=== PATIENT | female | born 1935 | race Hispanic/Latino ===

== ENCOUNTER 2017-03-20 18:52 | Inpatient (IN) | payer MEDICARE ==
[2017-03-20] MEDS ORDERED: Lidocaine 5% Patch TD STA (19:21)
--- NOTE | 2017-03-20 19:33 | ED PDOC ---
HPI: Back Chief Complaint (Provider): lower back pain History Per: Patient History/Exam Limitations: no limitations Onset/Duration Of Symptoms: Hrs (3) Current Symptoms Are (Timing): Other (worse) Quality Of Discomfort: "Pain" Description Of Injury (Context): Fell forward after she tripped and hit ground with her arms Severity: Severe Previous Symptoms: None Associated Symptoms: None Exacerbating Factor(s): Turning, Movement Additional History Per: Patient Additional Complaint(s): 81 y/o F with Hx of HTN, Hyperchol presents c/o lower back pain after a fall around 4 pm while she was walking near [place]. Patient states she tripped and fell forward hitting the ground with her UE. No loss of consciousness, dizziness , urinary symptoms, feces incontinence, CP, SOB, LE paresthesias or weakness reported. Patient didnt feel the pain at the beginning and she was able to walk home. Since then pain has increased in intensity. She took 1 pain med that she had at home for "chronic pain" but didnt help. Upon further questioning patient she mentions having "Leukemia" diagnosed this year. Evaluated by Hem-onc once. <Macario Kan - Last Filed: 03/20/17 23:39> <Lore Salazar - Last Filed: 03/24/17 11:42> Time Seen by Provider: 03/20/17 18:55 Chief Complaint (Nursing): Back Pain Past Medical History Vital Signs: Last Vital Signs Temp 97.8 F 03/20/17 18:54 Pulse 85 03/20/17 18:54 Resp 18 03/20/17 18:54 BP 167/93 H 03/20/17 18:54 Pulse Ox 99 03/20/17 18:54 - Medical History PMH: HTN, Hypercholesterolemia - Surgical History Surgical History: Back Surgery (Lumbar spine 20 y/a) - Family History Family History: States: No Known Family Hx - Living Arrangements Living Arrangements: Alone <Macario Kan - Last Filed: 03/20/17 23:39> Vital Signs: Last Vital Signs Temp 97.8 F 03/24/17 08:14 Pulse 77 03/24/17 08:14 Resp 20 03/24/17 08:14 BP 111/74 03/24/17 08:14 Pulse Ox 93 L 03/24/17 08:14 <Lore Salazar - Last Filed: 03/24/17 11:42> - Home Medications Home Medications: Ambulatory Orders Medication Instructions Recorded Alendronate Sodium [Binosto] 70 mg PO QWK 03/21/17 Amitriptyline HCl [Amitriptyline 10 mg PO HS 03/21/17 HCl] Amlodipine Besylate [Amlodipine 5 mg PO DAILY 03/21/17 Besilate] Atorvastatin Calcium [Atorvastatin 10 mg PO DAILY 03/21/17 Calcium] Ezetimibe [Zetia] 10 mg PO DAILY 03/21/17 Losartan Potassium [Cozaar] 100 mg PO DAILY 03/21/17 Oxybutynin Chloride [Oxybutynin 10 mg PO DAILY 03/21/17 Chloride ER] Trazodone HCl [Trazodone HCl] 50 mg PO HS 03/21/17 - Allergies Allergies/Adverse Reactions: Allergies Allergy/AdvReac Type Severity Reaction Status Date / Time codeine Allergy REDNESS Verified 03/20/17 18:54 Sulfa (Sulfonamide Allergy RASH Verified 03/20/17 18:54 Antibiotics) Supervising Attending Note - Supervising Attending Note The Documented history was done by the: Physician Street Cleaner, Attending Physician The documented physical exam was done by the: Physician Street Cleaner, Attending Physician - Attestation: I have personally seen and examined this patient.: Yes I have fully participated in the care of the patient.: Yes I have reviewed all pertinent clinical information: Yes <Lore Salazar - Last Filed: 03/24/17 11:42> Review of Systems ROS Statement: Except As Marked, All Systems Reviewed And Found Negative Musculoskeletal: Positive for: Back Pain (lower back) <Macario Kan - Last Filed: 03/20/17 23:39> Physical Exam - Reviewed Nursing Documentation Reviewed: Yes Vital Signs Reviewed: Yes - Physical Exam Appears: Positive for: Non-toxic, Uncomfortable Skin: Positive for: Normal Color, Warm Eye Exam: Positive for: Normal appearance, EOMI Neck: Positive for: Supple Cardiovascular/Chest: Positive for: Regular Rate, Rhythm. Negative for: Gallop Respiratory: Positive for: Normal Breath Sounds. Negative for: Wheezing, Respiratory Distress Gastrointestinal/Abdominal: Positive for: Soft. Negative for: Tenderness Back: Positive for: Vertebral Tenderness (Coccyx area), Decreased ROM (Painfull ROM of lower back). Negative for: Normal Inspection (Sx scar lumbar spine) Extremity: Positive for: Pedal Edema (trace), Capillary Refill. Negative for: Tenderness, Calf Tenderness Neurologic/Psych: Positive for: Alert, Oriented <Macario Kan - Last Filed: 03/20/17 23:39> - Laboratory Results Result Diagrams: 03/20/17 21:46 03/20/17 21:46 - ECG O2 Sat by Pulse Oximetry: 99 - Progress ED Course And Treament: Xray inconclusive CT of the lumbar spine positive for acute L1 Fx. WBC>40 Pain improved but persistent Admit to hospital <Macario Kan - Last Filed: 03/20/17 23:39> - Laboratory Results Result Diagrams: 03/23/17 05:40 03/23/17 05:40 <Lore Salazar - Last Filed: 03/24/17 11:42> Medical Decision Making Medical Decision Making: L1 acute Fx CT shows acute Fx Toradol 15 mg IM once Tylenol 975 mg once To be admitted to hosp Leukemia?? WBC 40s(lymphs) <Macario Kan - Last Filed: 03/20/17 23:39> Disposition - Disposition Disposition Time: 23:30 <Macario Kan - Last Filed: 03/20/17 23:39> <Lore Salazar - Last Filed: 03/24/17 11:42> - Clinical Impression Clinical Impression: Vertebral fracture - Disposition Condition: STABLE
--- NOTE | 2017-03-20 21:20 | CT ---
EXAM: CT Lumbar Spine Without Intravenous Contrast CLINICAL HISTORY: 81 years old, female; Injury or trauma; Fall; Initial encounter; Blunt trauma (contusions or hematomas); Additional info: Post fall back pain R/O fracture TECHNIQUE: Axial computed tomography images of the lumbar spine without intravenous contrast. All CT scans at this facility use one or more dose reduction techniques, viz.: automated exposure control; ma/kV adjustment per patient size (including targeted exams where dose is matched to indication; i.e. head); or iterative reconstruction technique. COMPARISON: None FINDINGS: Vertebrae: Cortical disruption is detected anteriorly within the vertebral body of L1, suggesting a burst fracture of the anterior column. This is best detected on series 601, image 68; series 6, image 35. No retropulsed fragments are detected. Discs/spinal canal/neural foramina: Moderate degenerative disease, with osteophyte formation, disc space narrowing, endplate changes and vacuum phenomenon. Significant facet arthropathy is also noted. The disease is most prominent at the level of L2/L3 and L3/L4. Grade 1 anterolisthesis of L3 on L4. Soft tissues: Densely calcified atherosclerotic disease. IMPRESSION: Acute burst fracture of the anterior column of L1, as detailed above.
[2017-03-20 21:51] LABS: BASO # 0.2 K/uL (0.0-0.2); BASO % 0.4 % (0.0-2.0); EOS # 0.3 K/uL (0.0-0.7); EOS % 0.6 % (0.0-4.0); HEMATOCRIT 39.4 % (34.0-47.0); LYMPH # 39.6 K/uL (1.0-4.3); MEAN CELL VOLUME 90.2 fl (81.0-99.0); MEAN CORPUSCULAR HEMOGLOBIN 28.8 pg (27.0-31.0); MEAN CORPUSCULAR HGB CONC 31.9 g/dL (33.0-37.0); MEAN PLATELET VOLUME 9.7 fl (7.2-11.7); MONO # 1.2 K/uL (0.0-0.8); MONO % 2.4 % (0.0-10.0); NEUT # 6.5 K/uL (1.8-7.0); NEUT % 13.6 % (50.0-75.0); NRBC % 0.3 % (0.0-0.0); PLATELET COUNT 137 K/uL (130-400); RED CELL DISTRIBUTION WIDTH 14.5 % (11.5-14.5)
[2017-03-20 21:55] LABS: WHITE BLOOD COUNT 47.8 K/uL (4.8-10.8)
[2017-03-20 22:00] LABS: ALB/GLOB RATIO 1.5 (1.0-2.1); BILIRUBIN,TOTAL 1.1 mg/dl (0.2-1.3); CALCIUM 9.9 mg/dL (8.4-10.2); CARBON DIOXIDE 23 mmol/L (22-30); CHLORIDE 109 mmol/L (98-107); GFR AFRICAN-AMERICAN > 60; GLUCOSE,RANDOM 96 mg/dL (65-105); SODIUM 139 mmol/l (132-148); TOTAL PROTEIN 6.6 G/DL (6.3-8.2)
[2017-03-20 22:01] LABS: ALKALINE PHOSPHATASE 115 U/L (38-126); ALT/SGPT 36 U/L (9-52); AST/SGOT 32 U/L (14-36); BLOOD UREA NITROGEN 19 mg/dl (7-17); POTASSIUM 4.7 MMOL/L (3.6-5.0)
[2017-03-21 00:03] LABS: EOSINOPHIL 3 % (0-7); NEUTROPHIL 14 % (42-75); REACTIVE LYMPHOCYTES 6 % (0-0); TOTAL CELLS COUNTED 100
[2017-03-21 00:04] LABS: SMUDGE CELLS PRESENT
[2017-03-21 00:11] LABS: RBC URINE 1 /hpf (0-3); URINE BACTERIA MANY (<OCC); URINE BILIRUBIN NEGATIVE (NEGATIVE); URINE BLOOD SMALL (NEGATIVE); URINE COLOR YELLOW (YELLOW); URINE GLUCOSE (UA) NEG (Normal); URINE KETONE NEGATIVE (NEGATIVE); URINE LEUKOCYTE ESTERASE NEG Leu/uL (Negative); URINE PROTEIN NEGATIVE (NEGATIVE); URINE UROBILINOGEN 0.2-1.0 mg/dL (0.2-1.0); WBC URINE 3 /hpf (0-5)
[2017-03-21] MEDS ORDERED: HYDROmorphone 1 mg/ml ISec IVP PRN (06:43)
[2017-03-21] MEDS ORDERED: DiphenhydrAMINE 50 mg/ml Inj IVP PRN (06:54)
[2017-03-21] MEDS: Oxycodone/Acetaminophen 5/325 mg Tab PO PRN ×2 (08:40→16:23)
[2017-03-21 09:58] LABS: BASO # 0.1 K/uL (0.0-0.2); BASO % 0.2 % (0.0-2.0); EOS # 0.2 K/uL (0.0-0.7); EOS % 0.4 % (0.0-4.0); LYMPH # 42.5 K/uL (1.0-4.3); LYMPH % 86.3 % (20.0-40.0); MEAN CELL VOLUME 88.8 fl (81.0-99.0); MEAN CORPUSCULAR HEMOGLOBIN 29.2 pg (27.0-31.0); MEAN CORPUSCULAR HGB CONC 32.9 g/dL (33.0-37.0); MEAN PLATELET VOLUME 9.4 fl (7.2-11.7); MONO # 0.9 K/uL (0.0-0.8); MONO % 1.8 % (0.0-10.0); NEUT # 5.6 K/uL (1.8-7.0); NEUT % 11.3 % (50.0-75.0); NRBC % 0.3 % (0.0-0.0); RED CELL DISTRIBUTION WIDTH 14.7 % (11.5-14.5)
[2017-03-21 10:26] LABS: WHITE BLOOD COUNT 49.2 K/uL (4.8-10.8)
--- NOTE | 2017-03-21 11:12 | CARD ---
APPROVED REPORT EKG Measurement Heart [id number] HI [id number] <Conclusion> Normal sinus rhythm Normal ECG
[2017-03-21] MEDS ORDERED: ALENDRONATE 70 MG TAB PO SCH (12:00)
--- NOTE | 2017-03-21 13:42 | CP.PCM.HP ---
History of Present Illness - History of Present Illness History of Present Illness: 81 y/o female admitted for lumbar fracture sustained after a fall .She apparently tripped and fall near [facility]. She was recently diagnosed with Chronic leukemia and currently not in any medication. Shetakes pain meds occasionally. Claims to have allergy to codeine where she developed rashes at one point. Medical Hx HTN OA Osteoporosis Present on Admission - Present on Admission Any Indicators Present on Admission: No History of DVT/PE: No History of Uncontrolled Diabetes: No Urinary Catheter: No Decubitus Ulcer Present: No Review of Systems - Musculoskeletal Musculoskeletal: Arthralgias, Back Pain Past Patient History - Past Medical History & Family History Past Medical History?: Yes - Past Social History Smoking Status: Former Smoker - CARDIAC Hx Cardiac Disorders: Yes (htn, hypercholesterolemia) Hx Hypercholesterolemia: Yes Hx Hypertension: Yes - PULMONARY Hx Respiratory Disorders: No - NEUROLOGICAL Hx Neurological Disorder: No - HEENT Hx HEENT Problems: No - RENAL Hx Chronic Kidney Disease: No - ENDOCRINE/METABOLIC Hx Endocrine Disorders: No - HEMATOLOGICAL/ONCOLOGICAL Hx Blood Disorders: Yes (leukemia) Hx Leukemia: Yes (2-3 months ago) - INTEGUMENTARY Hx Dermatological Problems: No - MUSCULOSKELETAL/RHEUMATOLOGICAL Hx Musculoskeletal Disorders: Yes Hx Back Pain: Yes Hx Falls: No Other/Comment: bone spurs - GASTROINTESTINAL Hx Gastrointestinal Disorders: No - GENITOURINARY/GYNECOLOGICAL Hx Genitourinary Disorders: Yes Hx Incontinence: Yes - PSYCHIATRIC Hx Psychophysiologic Disorder: No Hx Substance Use: No - SURGICAL HISTORY Hx Surgeries: Yes Other/Comment: spine surgery - ANESTHESIA Hx Anesthesia: Yes Hx Anesthesia Reactions: No Meds Allergies/Adverse Reactions: Allergies Allergy/AdvReac Type Severity Reaction Status Date / Time codeine Allergy REDNESS Verified 03/20/17 18:54 Sulfa (Sulfonamide Allergy RASH Verified 03/20/17 18:54 Antibiotics) Physical Exam - Head Exam Head Exam: NORMAL INSPECTION - Eye Exam Eye Exam: Normal appearance - Respiratory Exam Respiratory Exam: Clear to Auscultation Bilateral - Cardiovascular Exam Cardiovascular Exam: REGULAR RHYTHM - GI/Abdominal Exam GI & Abdominal Exam: Normal Bowel Sounds - Neurological Exam Neurological exam: CN II-XII Intact, Oriented x3 - Psychiatric Exam Psychiatric exam: Normal Mood Results - Vital Signs Recent Vital Signs: Last Vital Signs Temp 98.1 F 03/21/17 08:27 Pulse 87 03/21/17 08:27 Resp 20 03/21/17 08:27 BP 170/83 H 03/21/17 08:27 Pulse Ox 94 L 03/21/17 08:27 - Labs Result Diagrams: 03/21/17 09:15 03/20/17 21:46 Labs: Laboratory Results - last 24 hr 03/20/17 03/20/17 03/20/17 21:46 21:46 21:46 WBC 47.8 H* RBC 4.36 Hgb 12.6 Hct 39.4 MCV 90.2 MCH 28.8 MCHC 31.9 L RDW 14.5 Plt Count 137 MPV 9.7 Neut % (Auto) 13.6 L Lymph % (Auto) 83.0 H [place] % (Auto) 2.4 Eos % (Auto) 0.6 Baso % (Auto) 0.4 Neut # 6.5 Lymph # 39.6 H [place] # 1.2 H Eos # 0.3 Baso # 0.2 Neutrophils % (Manual) 14 L Lymphocytes % (Manual) 74 H Reactive Lymphs % 6 H Monocytes % (Manual) 3 Eosinophils % (Manual) 3 Smudge Cells Present Platelet Estimate Normal PT 12.0 INR 1.1 APTT 33.0 Sodium 139 Potassium 4.7 Chloride 109 H Carbon Dioxide 23 Anion Gap 12 BUN 19 H Creatinine 1.0 Est GFR ( Amer) > 60 Est GFR (Non-Af Amer) 53 Random Glucose 96 Calcium 9.9 Total Bilirubin 1.1 AST 32 ALT 36 Alkaline Phosphatase 115 Total Protein 6.6 Albumin 3.9 Globulin 2.7 Albumin/Globulin Ratio 1.5 Urine Color Urine Clarity Urine pH Ur Specific [place] Urine Protein Urine Glucose (UA) Urine Ketones Urine Blood Urine Nitrate Urine Bilirubin Urine Urobilinogen Ur Leukocyte Esterase Urine RBC (Auto) Urine Microscopic WBC Ur Squamous Epith Cells Urine Bacteria Blood Type Blood Type Confirm Antibody Screen BBK History Checked 03/20/17 03/20/17 03/20/17 21:46 23:31 23:37 WBC RBC Hgb Hct MCV MCH MCHC RDW Plt Count MPV Neut % (Auto) Lymph % (Auto) [place] % (Auto) Eos % (Auto) Baso % (Auto) Neut # Lymph # [place] # Eos # Baso # Neutrophils % (Manual) Lymphocytes % (Manual) Reactive Lymphs % Monocytes % (Manual) Eosinophils % (Manual) Smudge Cells Platelet Estimate PT INR APTT Sodium Potassium Chloride Carbon Dioxide Anion Gap BUN Creatinine Est GFR ( Amer) Est GFR (Non-Af Amer) Random Glucose Calcium Total Bilirubin AST ALT Alkaline Phosphatase Total Protein Albumin Globulin Albumin/Globulin Ratio Urine Color Yellow Urine Clarity Slighty-cloudy Urine pH 5.0 Ur Specific [place] 1.020 Urine Protein Negative Urine Glucose (UA) Neg Urine Ketones Negative Urine Blood Small Urine Nitrate Negative Urine Bilirubin Negative Urine Urobilinogen 0.2-1.0 Ur Leukocyte Esterase Neg Urine RBC (Auto) 1 Urine Microscopic WBC 3 Ur Squamous Epith Cells 1 Urine Bacteria Many H Blood Type O POSITIVE Blood Type Confirm O POSITIVE Antibody Screen Negative BBK History Checked No verified bt 03/21/17 09:15 WBC 49.2 H* RBC 4.51 Hgb 13.2 Hct 40.0 MCV 88.8 MCH 29.2 MCHC 32.9 L RDW 14.7 H Plt Count 138 MPV 9.4 Neut % (Auto) 11.3 L Lymph % (Auto) 86.3 H [place] % (Auto) 1.8 Eos % (Auto) 0.4 Baso % (Auto) 0.2 Neut # 5.6 Lymph # 42.5 H [place] # 0.9 H Eos # 0.2 Baso # 0.1 Neutrophils % (Manual) Lymphocytes % (Manual) Reactive Lymphs % Monocytes % (Manual) Eosinophils % (Manual) Smudge Cells Platelet Estimate PT INR APTT Sodium Potassium Chloride Carbon Dioxide Anion Gap BUN Creatinine Est GFR ( Amer) Est GFR (Non-Af Amer) Random Glucose Calcium Total Bilirubin AST ALT Alkaline Phosphatase Total Protein Albumin Globulin Albumin/Globulin Ratio Urine Color Urine Clarity Urine pH Ur Specific [place] Urine Protein Urine Glucose (UA) Urine Ketones Urine Blood Urine Nitrate Urine Bilirubin Urine Urobilinogen Ur Leukocyte Esterase Urine RBC (Auto) Urine Microscopic WBC Ur Squamous Epith Cells Urine Bacteria Blood Type Blood Type Confirm Antibody Screen BBK History Checked Assessment & Plan (1) Fracture lumbar vertebra-closed Status: Acute (2) Leukemia Status: Acute (3) Hypertension Status: Acute - Assessment and Plan (Free Text) Plan: IV fluids pain meds Consult with Dr Bales Consult with Dr Lopez Pain meds. PT eval
--- NOTE | 2017-03-21 15:25 | RAD ---
HISTORY: fall COMPARISON: No prior. FINDINGS: LUNGS: Suspect minor bibasilar atelectasis. Lung waddell otherwise clear PLEURA: No significant pleural effusion identified, no pneumothorax apparent. CARDIOVASCULAR: Normal. OSSEOUS STRUCTURES: No definitive evidence of acute displaced rib fracture. The remaining visualized osseous structures appear intact. Mild multilevel degenerative spondylosis of the thoracic spine. Degenerative changes both shoulder girdles. VISUALIZED UPPER ABDOMEN: Normal. OTHER FINDINGS: None. IMPRESSION: Suspect minor bibasilar atelectasis. Lung waddell otherwise clear
--- NOTE | 2017-03-21 16:08 | RAD ---
PROCEDURE: Radiographs of the Lumbar Spine. HISTORY: fall pain COMPARISON: No prior. FINDINGS: BONES: No acute compression fractures no retropulsed fragments. . There is slight anterior subluxation L4 over L5. There is also mild dextroscoliosis centered as well. . Vertebral bodies otherwise exhibit normal alignment. Facets normally aligned. . DISC SPACES: Multilevel degenerative spondylosis. Changes include varying degrees of disc space narrowing, endplate eburnation with anterolateral and smaller posterior osteophyte formation. The facets are hypertrophic L5-S1 through the L1-L2 levels in somewhat decreasing order of severity. OTHER FINDINGS: None. IMPRESSION: No acute fractures. Mild moderate multilevel degenerative spondylosis.
[2017-03-21] MEDS: oxyCODONE 10 mg ER Tab (oxyCONTIN) PO SCH (21:51)
[2017-03-21] MEDS ORDERED: TRAZODONE HCL 50 MG PO SCH (22:00)
[2017-03-22] MEDS ORDERED: AMLODIPINE BESYLATE 5 MG PO SCH (09:00)
--- NOTE | 2017-03-22 09:15 | CP.PCM.CON ---
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 The patient reports to tripping which led to a fall and subsequent lumbar fracture. She notes to lower back pain but no extremity weakness. She has followed with an oncologist and told she has a "good" leukemia that does not require current treatment. Past medical history: leukemia Past surgical history: None Family history: Aunt had leukemia Social history: Former tobacco use, denies alcohol and illicit drug use. Allergies: Sulfa, codeine Review of systems: All remaining review of systems including HEENT, cardiovascular, respiratory, gastrointestinal, genitourinary, musculoskeletal, dermatologic, neurologic, and psychiatric are negative unless mentioned in the hPI. Past Patient History - Past Medical History & Family History Past Medical History?: Yes - Past Social History Smoking Status: Former Smoker - CARDIAC Hx Cardiac Disorders: Yes (htn, hypercholesterolemia) Hx Hypercholesterolemia: Yes Hx Hypertension: Yes - PULMONARY Hx Respiratory Disorders: No - NEUROLOGICAL Hx Neurological Disorder: No - HEENT Hx HEENT Problems: No - RENAL Hx Chronic Kidney Disease: No - ENDOCRINE/METABOLIC Hx Endocrine Disorders: No - HEMATOLOGICAL/ONCOLOGICAL Hx Blood Disorders: Yes (leukemia) Hx Leukemia: Yes (2-3 months ago) - INTEGUMENTARY Hx Dermatological Problems: No - MUSCULOSKELETAL/RHEUMATOLOGICAL Hx Musculoskeletal Disorders: Yes Hx Back Pain: Yes Hx Falls: No Other/Comment: bone spurs - GASTROINTESTINAL Hx Gastrointestinal Disorders: No - GENITOURINARY/GYNECOLOGICAL Hx Genitourinary Disorders: Yes Hx Incontinence: Yes - PSYCHIATRIC Hx Psychophysiologic Disorder: No Hx Substance Use: No - SURGICAL HISTORY Hx Surgeries: Yes Other/Comment: spine surgery - ANESTHESIA Hx Anesthesia: Yes Hx Anesthesia Reactions: No Meds Allergies/Adverse Reactions: Allergies Allergy/AdvReac Type Severity Reaction Status Date / Time codeine Allergy REDNESS Verified 03/20/17 18:54 Sulfa (Sulfonamide Allergy RASH Verified 03/20/17 18:54 Antibiotics) - Medications Medications: Current Medications Acetaminophen (Tylenol 325mg Tab) 325 mg PO Q4 PRN PRN Reason: Pain, Mild (1-3) Alendronate Sodium (Fosamax) 70 mg PO QWK [facility] Amitriptyline HCl (Elavil) 10 mg PO HS [facility] Last Admin: 03/21/17 21:52 Dose: 10 mg Amlodipine Besylate (Norvasc) 5 mg PO DAILY [facility] Atorvastatin Calcium (Lipitor) 10 mg PO DAILY [facility] Last Admin: 03/21/17 08:14 Dose: 10 mg Diphenhydramine HCl (Benadryl) 50 mg IVP Q12 PRN PRN Reason: Itching / Pruritus Last Admin: 03/21/17 07:11 Dose: 50 mg Ezetimibe (Zetia) 10 mg PO DAILY [facility] Famotidine (Pepcid) 20 mg PO DAILY [facility] Losartan Potassium (Cozaar) 100 mg PO DAILY [facility] Ondansetron HCl (Zofran Inj) 4 mg IVP Q6 PRN PRN Reason: Nausea/Vomiting Oxybutynin Chloride (Ditropan Tab) 5 mg PO BID [facility] Last Admin: 03/21/17 16:18 Dose: 5 mg Oxycodone HCl (Oxycontin Extended Release Tab) 10 mg PO Q12 [facility] Stop: 03/24/17 21:01 Last Admin: 03/21/17 21:51 Dose: 10 mg Oxycodone/Acetaminophen (Percocet 5/325 Mg Tab) 1 tab PO Q4 PRN PRN Reason: Pain, moderate (4-7) Stop: 03/24/17 06:44 Last Admin: 03/21/17 16:23 Dose: 1 tab Trazodone HCl (Desyrel) 50 mg PO HS [facility] Last Admin: 03/21/17 21:52 Dose: 50 mg Physical Exam - Head Exam Head Exam: ATRAUMATIC - Eye Exam Eye Exam: Normal appearance - ENT Exam ENT Exam: Mucous Membranes Dry - Respiratory Exam Respiratory Exam: NORMAL BREATHING PATTERN - Cardiovascular Exam Cardiovascular Exam: +S1, +S2 - GI/Abdominal Exam GI & Abdominal Exam: Normal Bowel Sounds - Extremities Exam Extremities exam: Positive for: normal inspection - Neurological Exam Neurological exam: Oriented x3 - Psychiatric Exam Psychiatric exam: Normal Affect, Normal Mood - Skin Skin Exam: Warm Results - Vital Signs Recent Vital Signs: Last Vital Signs Temp 98.8 F 03/22/17 08:18 Pulse 73 03/22/17 08:18 Resp 20 03/22/17 08:18 BP 129/72 03/22/17 08:18 Pulse Ox 90 L 03/22/17 08:18 - Labs Result Diagrams: 03/21/17 09:15 03/20/17 21:46 Labs: Laboratory Results - last 24 hr 03/21/17 09:15 WBC 49.2 H* RBC 4.51 Hgb 13.2 Hct 40.0 MCV 88.8 MCH 29.2 MCHC 32.9 L RDW 14.7 H Plt Count 138 MPV 9.4 Neut % (Auto) 11.3 L Lymph % (Auto) 86.3 H [place] % (Auto) 1.8 Eos % (Auto) 0.4 Baso % (Auto) 0.2 Neut # 5.6 Lymph # 42.5 H [place] # 0.9 H Eos # 0.2 Baso # 0.1 Assessment & Plan (1) Leukemia Assessment and Plan: 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 Status: Acute
[2017-03-22] MEDS: oxyCODONE 10 mg ER Tab (oxyCONTIN) PO SCH ×2 (09:20→21:47)
--- NOTE | 2017-03-22 11:08 | CP.PCM.PN ---
Subjective - Date & Time of Evaluation Date of Evaluation: 03/22/17 Time of Evaluation: 11:07 - Subjective Subjective: In a lot of pain Note relieved by Percocet. Has no chest pain seen by Dr Lopez( Oncology) Discussed with Dr Bales and may do vertebroplasty Wednesday. Objective - Vital Signs/Intake and Output Vital Signs (last 24 hours): Temp Pulse Resp BP Pulse Ox 98.8 F 84 20 148/81 90 L 03/22/17 08:18 03/22/17 09:17 03/22/17 08:18 03/22/17 09:17 03/22/17 08:18 - Medications Medications: Current Medications Acetaminophen (Tylenol 325mg Tab) 325 mg PO Q4 PRN PRN Reason: Pain, Mild (1-3) Alendronate Sodium (Fosamax) 70 mg PO QWK [facility] Amitriptyline HCl (Elavil) 10 mg PO HS [facility] Last Admin: 03/21/17 21:52 Dose: 10 mg Amlodipine Besylate (Norvasc) 5 mg PO DAILY [facility] Last Admin: 03/22/17 09:17 Dose: 5 mg Atorvastatin Calcium (Lipitor) 10 mg PO DAILY [facility] Last Admin: 03/22/17 09:20 Dose: 10 mg Diphenhydramine HCl (Benadryl) 50 mg IVP Q12 PRN PRN Reason: Itching / Pruritus Last Admin: 03/21/17 07:11 Dose: 50 mg Ezetimibe (Zetia) 10 mg PO DAILY [facility] Last Admin: 03/22/17 09:18 Dose: 10 mg Famotidine (Pepcid) 20 mg PO DAILY [facility] Last Admin: 03/22/17 09:20 Dose: 20 mg Losartan Potassium (Cozaar) 100 mg PO DAILY [facility] Last Admin: 03/22/17 09:17 Dose: 100 mg Ondansetron HCl (Zofran Inj) 4 mg IVP Q6 PRN PRN Reason: Nausea/Vomiting Oxybutynin Chloride (Ditropan Tab) 5 mg PO BID [facility] Last Admin: 03/22/17 09:17 Dose: 5 mg Oxycodone HCl (Oxycontin Extended Release Tab) 10 mg PO Q12 [facility] Stop: 03/24/17 21:01 Last Admin: 03/22/17 09:20 Dose: 10 mg Oxycodone/Acetaminophen (Percocet 5/325 Mg Tab) 1 tab PO Q4 PRN PRN Reason: Pain, moderate (4-7) Stop: 03/24/17 06:44 Last Admin: 03/21/17 16:23 Dose: 1 tab Trazodone HCl (Desyrel) 50 mg PO HS [facility] Last Admin: 03/21/17 21:52 Dose: 50 mg - Labs Labs: 03/21/17 09:15 03/20/17 21:46 PT 12.0 Seconds (9.8-13.1) 03/20/17 21:46 INR 1.1 (0.9-1.2) 03/20/17 21:46 APTT 33.0 Seconds (25.6-37.1) 03/20/17 21:46 - Head Exam Head Exam: NORMAL INSPECTION - Eye Exam Eye Exam: Normal appearance - ENT Exam ENT Exam: Mucous Membranes Moist - Respiratory Exam Respiratory Exam: Clear to Ausculation Bilateral - Cardiovascular Exam Cardiovascular Exam: REGULAR RHYTHM - GI/Abdominal Exam GI & Abdominal Exam: Normal Bowel Sounds - Neurological Exam Neurological Exam: Awake, Oriented x3 - Psychiatric Exam Psychiatric exam: Normal Mood Assessment and Plan (1) Fracture lumbar vertebra-closed Status: Acute (2) Leukemia Status: Acute (3) Hypertension Status: Acute - Assessment and Plan (Free Text) Plan: Cont meds Cont tx low salt low fat diet pain meds
[2017-03-22] MEDS: Ciprofloxacin 400mg/200ml D5W 400 MG/200 ML BAG IVPB SCH ×2 (13:21→21:47)
[2017-03-23 06:11] LABS: HEMATOCRIT 38.4 % (34.0-47.0); MEAN CELL VOLUME 90.2 fl (81.0-99.0); MEAN CORPUSCULAR HEMOGLOBIN 29.2 pg (27.0-31.0); MEAN CORPUSCULAR HGB CONC 32.4 g/dL (33.0-37.0)
[2017-03-23 06:23] LABS: BLOOD UREA NITROGEN 16 mg/dl (7-17); CARBON DIOXIDE 23 mmol/L (22-30); CHLORIDE 108 mmol/L (98-107); GFR AFRICAN-AMERICAN > 60; GLUCOSE,RANDOM 126 mg/dL (65-105); POTASSIUM 4.1 MMOL/L (3.6-5.0); SODIUM 139 mmol/l (132-148)
[2017-03-23 06:29] LABS: WHITE BLOOD COUNT 36.2 K/uL (4.8-10.8)
--- NOTE | 2017-03-23 10:41 | CP.PCM.PN ---
Subjective - Date & Time of Evaluation Date of Evaluation: 03/23/17 Time of Evaluation: 10:39 - Subjective Subjective: Patient remains stable. Has no chest pain or SOB All preop labs are normal. Objective - Vital Signs/Intake and Output Vital Signs (last 24 hours): Temp Pulse Resp BP Pulse Ox 98.3 F 73 18 114/69 95 03/23/17 08:15 03/23/17 08:15 03/23/17 08:15 03/23/17 08:15 03/23/17 08:15 - Medications Medications: Current Medications Acetaminophen (Tylenol 325mg Tab) 325 mg PO Q4 PRN PRN Reason: Pain, Mild (1-3) Alendronate Sodium (Fosamax) 70 mg PO QWK [facility] Amitriptyline HCl (Elavil) 10 mg PO HS [facility] Last Admin: 03/22/17 21:51 Dose: 10 mg Amlodipine Besylate (Norvasc) 5 mg PO DAILY [facility] Last Admin: 03/22/17 09:17 Dose: 5 mg Atorvastatin Calcium (Lipitor) 10 mg PO DAILY [facility] Last Admin: 03/22/17 09:20 Dose: 10 mg Diphenhydramine HCl (Benadryl) 50 mg IVP Q12 PRN PRN Reason: Itching / Pruritus Last Admin: 03/21/17 07:11 Dose: 50 mg Ezetimibe (Zetia) 10 mg PO DAILY [facility] Last Admin: 03/22/17 09:18 Dose: 10 mg Famotidine (Pepcid) 20 mg PO DAILY [facility] Last Admin: 03/22/17 09:20 Dose: 20 mg Ciprofloxacin (Cipro 400mg/200ml Dsw) 400 mg in 200 mls @ 200 mls/hr IVPB Q12 [facility] PRN Reason: Protocol Last Admin: 03/22/17 21:47 Dose: 200 mls/hr Losartan Potassium (Cozaar) 100 mg PO DAILY [facility] Last Admin: 03/22/17 09:17 Dose: 100 mg Morphine Sulfate (Morphine) 4 mg IVP Q4 PRN PRN Reason: Pain, severe (8-10) Ondansetron HCl (Zofran Inj) 4 mg IVP Q6 PRN PRN Reason: Nausea/Vomiting Oxybutynin Chloride (Ditropan Tab) 5 mg PO BID [facility] Last Admin: 03/22/17 16:13 Dose: 5 mg Oxycodone HCl (Oxycontin Extended Release Tab) 10 mg PO Q12 [facility] Stop: 03/24/17 21:01 Last Admin: 03/22/17 21:47 Dose: 10 mg Oxycodone/Acetaminophen (Percocet 5/325 Mg Tab) 1 tab PO Q4 PRN PRN Reason: Pain, moderate (4-7) Stop: 03/24/17 06:44 Last Admin: 03/21/17 16:23 Dose: 1 tab Trazodone HCl (Desyrel) 50 mg PO HS [facility] Last Admin: 03/22/17 21:51 Dose: 50 mg - Labs Labs: 03/23/17 05:40 03/23/17 05:40 PT 12.0 Seconds (9.8-13.1) 03/20/17 21:46 INR 1.1 (0.9-1.2) 03/20/17 21:46 APTT 33.0 Seconds (25.6-37.1) 03/20/17 21:46 - Head Exam Head Exam: NORMAL INSPECTION - Eye Exam Eye Exam: Normal appearance - ENT Exam ENT Exam: Mucous Membranes Moist - Respiratory Exam Respiratory Exam: Clear to Ausculation Bilateral - Cardiovascular Exam Cardiovascular Exam: REGULAR RHYTHM - GI/Abdominal Exam GI & Abdominal Exam: Normal Bowel Sounds - Neurological Exam Neurological Exam: CN II-XII Intact, Oriented x3 Assessment and Plan (1) Fracture lumbar vertebra-closed Status: Acute (2) Leukemia Status: Acute (3) Hypertension Status: Acute - Assessment and Plan (Free Text) Assessment: cont meds follow up labs Noted decrease in WBC, medically stable for vertebroplasty in AM.
[2017-03-23] MEDS: oxyCODONE 10 mg ER Tab (oxyCONTIN) PO SCH ×2 (11:17→21:28)
--- NOTE | 2017-03-23 11:26 | PQF GENQUE ---
This form is a permanent part of the medical record 03/23/17 Dr. 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 URINE CS performed on admission with the following results: > 100,000 CFU/ML E Coli and started on Cipro. Would you please clarify if there is an associated diagnosis or not to go along with the Urine CS findings Clarification of your documentation is requested to better reflect the severity of illness and intensity of treatment of your patient. Indicators present [] Specify: [] [] Specify: [] [] Specify: [] [] Specify: [] Location in the medical record that reflects the above clinical findings: [] Treatment Provided: [] PHYSICIAN'S RESPONSE Based on your medical judgment of the clinical indicators outlined above please clarify the following: [] Practitioner response [] If unable to determine, please check the box, sign and date. Present On Admission (POA) Indicator: [] Present at the time of admission [] Not present at the time of admission [] Clinically Undetermined In responding to this query, please exercise your independent professional judgment. The fact that a question is asked does not imply that any particular answer is desired or expected. Thank you for your clarification on this documentation. If you have any questions please call:extension [phone] * Thank you, Marian Souza RN [facility]
--- NOTE | 2017-03-23 11:37 | PQF GENQUE ---
This form is a permanent part of the medical record 03/23/17 Dr. Ford, Patient with a history of Osteoporosis and likely CLL is admitted s/p tripping and fell forward hitting the ground with her UE. + for vertebral tenderness coccyx. CT lumbar spine + for acute burst fracture of the anterior column of L1. Treated with pain medication and will have a Vertebroplasty performed. Please clarify the cause of the acute burst fracture of L1 if known. Clarification of your documentation is requested to better reflect the severity of illness and intensity of treatment of your patient. Indicators present [] Specify: [] [] Specify: [] [] Specify: [] [] Specify: [] Location in the medical record that reflects the above clinical findings: [] Treatment Provided: [] PHYSICIAN'S RESPONSE Etiology of fracture: [] Traumatic [] Pathologic due to osteoporosis / malignancy [] Other please specify [] Unknown Based on your medical judgment of the clinical indicators outlined above please clarify the following: [] Practitioner response [] If unable to determine, please check the box, sign and date. Present On Admission (POA) Indicator: [] Present at the time of admission [] Not present at the time of admission [] Clinically Undetermined In responding to this query, please exercise your independent professional judgment. The fact that a question is asked does not imply that any particular answer is desired or expected. Thank you for your clarification on this documentation. If you have any questions please call:ext [phone] * Thank you, Marian Souza RN CD[facility]
[2017-03-23] MEDS: Ciprofloxacin 400mg/200ml D5W 400 MG/200 ML BAG IVPB SCH ×2 (12:00→21:28)
[2017-03-23] MEDS ORDERED: Bisacodyl 5mg EC Tab PO ONE (15:08)
--- NOTE | 2017-03-23 17:05 | CP.PCM.PN ---
Subjective - Date & Time of Evaluation Date of Evaluation: 03/23/17 Time of Evaluation: 17:00 - Subjective Subjective: Has back pain Objective - Vital Signs/Intake and Output Vital Signs (last 24 hours): Temp Pulse Resp BP Pulse Ox 97.4 F L 76 17 101/63 94 L 03/23/17 15:56 03/23/17 15:56 03/23/17 15:56 03/23/17 15:56 03/23/17 15:56 - Medications Medications: Current Medications Acetaminophen (Tylenol 325mg Tab) 325 mg PO Q4 PRN PRN Reason: Pain, Mild (1-3) Alendronate Sodium (Fosamax) 70 mg PO QWK [facility] Amitriptyline HCl (Elavil) 10 mg PO HS [facility] Last Admin: 03/22/17 21:51 Dose: 10 mg Amlodipine Besylate (Norvasc) 5 mg PO DAILY [facility] [place] Last Admin: 03/23/17 10:11 Dose: 5 mg Atorvastatin Calcium (Lipitor) 10 mg PO DAILY [facility] [place] Last Admin: 03/23/17 10:11 Dose: 10 mg Diphenhydramine HCl (Benadryl) 50 mg IVP Q12 PRN PRN Reason: Itching / Pruritus Last Admin: 03/21/17 07:11 Dose: 50 mg Docusate Sodium (Colace) 200 mg PO DAILY [facility] Ezetimibe (Zetia) 10 mg PO DAILY [facility] [place] Last Admin: 03/23/17 10:10 Dose: 10 mg Famotidine (Pepcid) 20 mg PO DAILY [facility] [place] Last Admin: 03/23/17 11:12 Dose: 20 mg Ciprofloxacin (Cipro 400mg/200ml Dsw) 400 mg in 200 mls @ 200 mls/hr IVPB Q12 [facility] PRN Reason: Protocol Last Admin: 03/22/17 21:47 Dose: 200 mls/hr Losartan Potassium (Cozaar) 100 mg PO DAILY [facility] [place] Last Admin: 03/23/17 10:09 Dose: 100 mg Morphine Sulfate (Morphine) 4 mg IVP Q4 PRN PRN Reason: Pain, severe (8-10) Ondansetron HCl (Zofran Inj) 4 mg IVP Q6 PRN PRN Reason: Nausea/Vomiting Oxybutynin Chloride (Ditropan Tab) 5 mg PO BID [facility] [place] Last Admin: 03/23/17 10:10 Dose: 5 mg Oxycodone HCl (Oxycontin Extended Release Tab) 10 mg PO Q12 [facility] Stop: 03/24/17 21:01 Last Admin: 03/23/17 11:17 Dose: 10 mg Oxycodone/Acetaminophen (Percocet 5/325 Mg Tab) 1 tab PO Q4 PRN PRN Reason: Pain, moderate (4-7) Stop: 03/24/17 06:44 Last Admin: 03/21/17 16:23 Dose: 1 tab Trazodone HCl (Desyrel) 50 mg PO HS [facility] Last Admin: 03/22/17 21:51 Dose: 50 mg - Labs Labs: 03/23/17 05:40 03/23/17 05:40 PT 12.0 Seconds (9.8-13.1) 03/20/17 21:46 INR 1.1 (0.9-1.2) 03/20/17 21:46 APTT 33.0 Seconds (25.6-37.1) 03/20/17 21:46 - Head Exam Head Exam: ATRAUMATIC - Eye Exam Eye Exam: Normal appearance - ENT Exam ENT Exam: Mucous Membranes Dry - Respiratory Exam Respiratory Exam: NORMAL BREATHING PATTERN - Cardiovascular Exam Cardiovascular Exam: +S1, +S2 - GI/Abdominal Exam GI & Abdominal Exam: Normal Bowel Sounds - Extremities Exam Extremities Exam: Normal Inspection Assessment and Plan (1) Leukemia Assessment & Plan: likely CLL no intervention outpatient f/u Status: Acute (2) Leukocytosis Assessment & Plan: secondary to leukemia Status: Acute (3) Thrombocytopenia Assessment & Plan: mild cont. to monitor Status: Acute
--- NOTE | 2017-03-23 18:03 | CARD ---
APPROVED REPORT EXAM: Two-dimensional and M-mode echocardiogram with Doppler and color Doppler. Other Information Quality : AverageRhythm : NSR INDICATION Pre-Op 2D DIMENSIONS IVSd0.67 (0.7-1.1cm)LVDd4.17 (3.9-5.9cm) LVOT Diameter1.81 (1.8-2.4cm)PWd0.68 (0.7-1.1cm) IVSs1.11 (0.8-1.2cm)LVDs2.43 (2.5-4.0cm) FS (%) 41.8 %PWs1.29 (0.8-1.2cm) M-Mode DIMENSIONS Left Atrium (MM)3.81 (2.5-4.0cm)IVSd1.16 (0.7-1.1cm) Aortic Root2.65 (2.2-3.7cm)LVDd3.61 (4.0-5.6cm) Aortic Cusp Exc.1.54 (1.5-2.0cm)PWd1.19 (0.7-1.1cm) IVSs1.76 cmFS (%) 44 % LVDs2.01 (2.0-3.8cm)PWs1.24 cm Mitral Valve MV E Ujnlcuot56.8cm/sMV DECEL [id number] A Xeypkvxd27.6cm/s MV XCF18ktK/A ratio0.6MVA (PHT)3.10cm2 TDI Lateral E' Peak V6.93cm/sMedial E' Peak V3.99cm/sE/Lateral E'7.3 E/Medial E'12.7 Tricuspid Valve TR Peak Zfxrgbvt478fi/sRAP [id number] Peak Gr.31mmHg [id number] LEFT VENTRICLE The left ventricle is normal size. There is normal left ventricular wall thickness. The left ventricular function is normal. The left ventricular ejection fraction is - 70%. There is normal LV segmental wall motion. Transmitral Doppler flow pattern is Grade I-abnormal relaxation pattern. No left ventricle thrombus noted on this study. There is no ventricular septal defect visualized. There is no left ventricular aneurysm. There is no mass noted in the left ventricle. RIGHT VENTRICLE The right ventricle is normal size. There is normal right ventricular wall thickness. The right ventricular systolic function is normal. ATRIA The left atrium appears mildly dilated on the 2D study. There is no thrombus suspected in the left atrium. The right atrium size is normal. The interatrial septum is intact with no evidence for an atrial septal defect. AORTIC VALVE The aortic valve is mildly sclerotic. No aortic regurgitation is present. There is no aortic valvular stenosis. MITRAL VALVE The mitral valve is normal in structure. There is no evidence of mitral valve prolapse. There is no mitral valve stenosis. Mitral regurgitation is trace. TRICUSPID VALVE The tricuspid valve is normal in structure. There is mild tricuspid regurgitation. Right ventricular systolic pressure is estimated at 40 mmHg. There is no tricuspid valve prolapse or vegetation. There is no tricuspid valve stenosis. PULMONIC VALVE The pulmonic valve is not well visualized. There is no pulmonic valvular regurgitation. GREAT VESSELS The aortic root is normal in size. The IVC is normal in size and collapses >50% with inspiration. PERICARDIAL EFFUSION The pericardium appears normal. There is no pleural effusion. <Conclusion> The left ventricle is normal in size and wall thickness. The left ventricular function is normal. The left ventricular ejection fraction is - 70%. The left atrium appears mildly dilated on the 2D study. The aortic valve is mildly sclerotic but not stenotic. The mitral and tricuspid valves are normal. There is trace mitral regurgitation and mild tricuspid regurgitation.
--- NOTE | 2017-03-23 21:37 | CP.PCM.CON ---
History of Present Illness - History of Present Illness History of Present Illness: I was asked to provide cardiovascular risk assessment. full consult to follow. Patient has a history of CLL and requires verterbroplasty secondary to a fall. The echocardiogram reveasl normal left ventricular function and no wall motion abnormalities. EKG reveals no evidence of myocardial ischemia. There is no cardiovascular contraindication to the planned surgery. Past Patient History - Past Medical History & Family History Past Medical History?: Yes - Past Social History Smoking Status: Former Smoker - CARDIAC Hx Cardiac Disorders: Yes (htn, hypercholesterolemia) Hx Hypercholesterolemia: Yes Hx Hypertension: Yes - PULMONARY Hx Respiratory Disorders: No - NEUROLOGICAL Hx Neurological Disorder: No - HEENT Hx HEENT Problems: No - RENAL Hx Chronic Kidney Disease: No - ENDOCRINE/METABOLIC Hx Endocrine Disorders: No - HEMATOLOGICAL/ONCOLOGICAL Hx Blood Disorders: Yes (leukemia) Hx Leukemia: Yes (2-3 months ago) - INTEGUMENTARY Hx Dermatological Problems: No - MUSCULOSKELETAL/RHEUMATOLOGICAL Hx Musculoskeletal Disorders: Yes Hx Back Pain: Yes Hx Falls: No Other/Comment: bone spurs - GASTROINTESTINAL Hx Gastrointestinal Disorders: No - GENITOURINARY/GYNECOLOGICAL Hx Genitourinary Disorders: Yes Hx Incontinence: Yes - PSYCHIATRIC Hx Psychophysiologic Disorder: No Hx Substance Use: No - SURGICAL HISTORY Hx Surgeries: Yes Other/Comment: spine surgery - ANESTHESIA Hx Anesthesia: Yes Hx Anesthesia Reactions: No Meds Allergies/Adverse Reactions: Allergies Allergy/AdvReac Type Severity Reaction Status Date / Time codeine Allergy REDNESS Verified 03/20/17 18:54 Sulfa (Sulfonamide Allergy RASH Verified 03/20/17 18:54 Antibiotics) - Medications Medications: Current Medications Acetaminophen (Tylenol 325mg Tab) 325 mg PO Q4 PRN PRN Reason: Pain, Mild (1-3) Alendronate Sodium (Fosamax) 70 mg PO QWK [facility] Amitriptyline HCl (Elavil) 10 mg PO HS [facility] Last Admin: 03/23/17 21:29 Dose: 10 mg Amlodipine Besylate (Norvasc) 5 mg PO DAILY [facility] Last Admin: 03/23/17 10:11 Dose: 5 mg Atorvastatin Calcium (Lipitor) 10 mg PO DAILY [facility] Last Admin: 03/23/17 10:11 Dose: 10 mg Diphenhydramine HCl (Benadryl) 50 mg IVP Q12 PRN PRN Reason: Itching / Pruritus Last Admin: 03/21/17 07:11 Dose: 50 mg Docusate Sodium (Colace) 200 mg PO DAILY [facility] Ezetimibe (Zetia) 10 mg PO DAILY [facility] Last Admin: 03/23/17 10:10 Dose: 10 mg Famotidine (Pepcid) 20 mg PO DAILY [facility] Last Admin: 03/23/17 11:12 Dose: 20 mg Ciprofloxacin (Cipro 400mg/200ml Dsw) 400 mg in 200 mls @ 200 mls/hr IVPB Q12 [facility] PRN Reason: Protocol Last Admin: 03/23/17 21:28 Dose: 200 mls/hr Losartan Potassium (Cozaar) 100 mg PO DAILY [facility] Last Admin: 03/23/17 10:09 Dose: 100 mg Morphine Sulfate (Morphine) 4 mg IVP Q4 PRN PRN Reason: Pain, severe (8-10) Last Admin: 03/23/17 17:14 Dose: 4 mg Ondansetron HCl (Zofran Inj) 4 mg IVP Q6 PRN PRN Reason: Nausea/Vomiting Oxybutynin Chloride (Ditropan Tab) 5 mg PO BID [facility] Last Admin: 03/23/17 17:15 Dose: 5 mg Oxycodone HCl (Oxycontin Extended Release Tab) 10 mg PO Q12 [facility] Stop: 03/24/17 21:01 Last Admin: 03/23/17 21:28 Dose: 10 mg Oxycodone/Acetaminophen (Percocet 5/325 Mg Tab) 1 tab PO Q4 PRN PRN Reason: Pain, moderate (4-7) Stop: 03/24/17 06:44 Last Admin: 03/21/17 16:23 Dose: 1 tab Trazodone HCl (Desyrel) 50 mg PO HS [facility] Last Admin: 03/23/17 21:29 Dose: 50 mg Results - Vital Signs Recent Vital Signs: Last Vital Signs Temp 97.4 F L 03/23/17 15:56 Pulse 76 03/23/17 15:56 Resp 17 03/23/17 15:56 BP 101/63 03/23/17 15:56 Pulse Ox 94 L 03/23/17 15:56 - Labs Result Diagrams: 03/23/17 05:40 03/23/17 05:40 Labs: Laboratory Results - last 24 hr 03/23/17 03/23/17 05:40 05:40 WBC 36.2 H RBC 4.25 Hgb 12.4 Hct 38.4 MCV 90.2 MCH 29.2 MCHC 32.4 L RDW 15.0 H Plt Count 111 L D Sodium 139 Potassium 4.1 Chloride 108 H Carbon Dioxide 23 Anion Gap 12 BUN 16 Creatinine 1.0 Est GFR ( Amer) > 60 Est GFR (Non-Af Amer) 53 Random Glucose 126 H Calcium 9.0
--- NOTE | 2017-03-23 21:37 | CP.PCM.CON ---
Past Patient History - Past Medical History & Family History Past Medical History?: Yes - Past Social History Smoking Status: Former Smoker - CARDIAC Hx Cardiac Disorders: Yes (htn, hypercholesterolemia) Hx Hypercholesterolemia: Yes Hx Hypertension: Yes - PULMONARY Hx Respiratory Disorders: No - NEUROLOGICAL Hx Neurological Disorder: No - HEENT Hx HEENT Problems: No - RENAL Hx Chronic Kidney Disease: No - ENDOCRINE/METABOLIC Hx Endocrine Disorders: No - HEMATOLOGICAL/ONCOLOGICAL Hx Blood Disorders: Yes (leukemia) Hx Leukemia: Yes (2-3 months ago) - INTEGUMENTARY Hx Dermatological Problems: No - MUSCULOSKELETAL/RHEUMATOLOGICAL Hx Musculoskeletal Disorders: Yes Hx Back Pain: Yes Hx Falls: No Other/Comment: bone spurs - GASTROINTESTINAL Hx Gastrointestinal Disorders: No - GENITOURINARY/GYNECOLOGICAL Hx Genitourinary Disorders: Yes Hx Incontinence: Yes - PSYCHIATRIC Hx Psychophysiologic Disorder: No Hx Substance Use: No - SURGICAL HISTORY Hx Surgeries: Yes Other/Comment: spine surgery - ANESTHESIA Hx Anesthesia: Yes Hx Anesthesia Reactions: No Meds Allergies/Adverse Reactions: Allergies Allergy/AdvReac Type Severity Reaction Status Date / Time codeine Allergy REDNESS Verified 03/20/17 18:54 Sulfa (Sulfonamide Allergy RASH Verified 03/20/17 18:54 Antibiotics) - Medications Medications: Current Medications Acetaminophen (Tylenol 325mg Tab) 325 mg PO Q4 PRN PRN Reason: Pain, Mild (1-3) Alendronate Sodium (Fosamax) 70 mg PO QWK [facility] Amitriptyline HCl (Elavil) 10 mg PO HS [facility] Last Admin: 03/23/17 21:29 Dose: 10 mg Amlodipine Besylate (Norvasc) 5 mg PO DAILY [facility] Last Admin: 03/23/17 10:11 Dose: 5 mg Atorvastatin Calcium (Lipitor) 10 mg PO DAILY [facility] Last Admin: 03/23/17 10:11 Dose: 10 mg Diphenhydramine HCl (Benadryl) 50 mg IVP Q12 PRN PRN Reason: Itching / Pruritus Last Admin: 03/21/17 07:11 Dose: 50 mg Docusate Sodium (Colace) 200 mg PO DAILY [facility] Ezetimibe (Zetia) 10 mg PO DAILY [facility] Last Admin: 03/23/17 10:10 Dose: 10 mg Famotidine (Pepcid) 20 mg PO DAILY [facility] Last Admin: 03/23/17 11:12 Dose: 20 mg Ciprofloxacin (Cipro 400mg/200ml Dsw) 400 mg in 200 mls @ 200 mls/hr IVPB Q12 [facility] PRN Reason: Protocol Last Admin: 03/23/17 21:28 Dose: 200 mls/hr Losartan Potassium (Cozaar) 100 mg PO DAILY [facility] Last Admin: 03/23/17 10:09 Dose: 100 mg Morphine Sulfate (Morphine) 4 mg IVP Q4 PRN PRN Reason: Pain, severe (8-10) Last Admin: 03/23/17 17:14 Dose: 4 mg Ondansetron HCl (Zofran Inj) 4 mg IVP Q6 PRN PRN Reason: Nausea/Vomiting Oxybutynin Chloride (Ditropan Tab) 5 mg PO BID [facility] Last Admin: 03/23/17 17:15 Dose: 5 mg Oxycodone HCl (Oxycontin Extended Release Tab) 10 mg PO Q12 [facility] Stop: 03/24/17 21:01 Last Admin: 03/23/17 21:28 Dose: 10 mg Oxycodone/Acetaminophen (Percocet 5/325 Mg Tab) 1 tab PO Q4 PRN PRN Reason: Pain, moderate (4-7) Stop: 03/24/17 06:44 Last Admin: 03/21/17 16:23 Dose: 1 tab Trazodone HCl (Desyrel) 50 mg PO HS [facility] Last Admin: 03/23/17 21:29 Dose: 50 mg Results - Vital Signs Recent Vital Signs: Last Vital Signs Temp 97.4 F L 03/23/17 15:56 Pulse 76 03/23/17 15:56 Resp 17 03/23/17 15:56 BP 101/63 03/23/17 15:56 Pulse Ox 94 L 03/23/17 15:56 - Labs Result Diagrams: 03/23/17 05:40 03/23/17 05:40 Labs: Laboratory Results - last 24 hr 03/23/17 03/23/17 05:40 05:40 WBC 36.2 H RBC 4.25 Hgb 12.4 Hct 38.4 MCV 90.2 MCH 29.2 MCHC 32.4 L RDW 15.0 H Plt Count 111 L D Sodium 139 Potassium 4.1 Chloride 108 H Carbon Dioxide 23 Anion Gap 12 BUN 16 Creatinine 1.0 Est GFR ( Amer) > 60 Est GFR (Non-Af Amer) 53 Random Glucose 126 H Calcium 9.0
[2017-03-24] MEDS ORDERED: Lactated Ringer's 1,000 ML IV SCH (07:00)
[2017-03-24] MEDS: oxyCODONE 10 mg ER Tab (oxyCONTIN) PO SCH ×2 (09:34→21:16)
[2017-03-24] MEDS ORDERED: Bupivacaine HCl 0.25% PF (30 ml) Inj ONE (09:50)
[2017-03-24] MEDS ORDERED: Thrombin Topical 5,000 IU Spray Kit ONE (09:51)
[2017-03-24] MEDS ORDERED: ceFAZolin IV 1 gm in Dextrose 1 GM/50 ML BAG IVPB ONE (09:51)
[2017-03-24] MEDS ORDERED: Lidocaine 2% w Epi 1:100,000 Inj IJ ONE ×2 (09:51→10:37)
[2017-03-24] MEDS ORDERED: Absorbable Gelatin Sponge Size 100 ONE (09:51)
[2017-03-24] MEDS ORDERED: Etomidate 20 mg/10ml Inj IV ONE (10:00)
[2017-03-24] MEDS ORDERED: Rocuronium 10 mg/ml (5 ml) ONE (10:00)
[2017-03-24] MEDS ORDERED: Lidocaine 4% (Laryng-O-Jet) Kit MM ONE (10:00)
[2017-03-24] MEDS ORDERED: Midazolam 2 MG/2 ML VIAL ONE (10:00)
[2017-03-24] MEDS ORDERED: ePHEDrine 50 mg/ml Inj ONE (10:00)
[2017-03-24] MEDS ORDERED: Lactated Ringer's 1,000 ML IV ONE (10:10)
[2017-03-24] MEDS ORDERED: HEMOSTATIC MATRIX 10 ML DIS.NEEDLE TOP ONE (10:50)
[2017-03-24] MEDS ORDERED: Neostigmine Methylsulfate 2 MG/2 ML ML IV ONE (11:10)
[2017-03-24] MEDS ORDERED: Bupivacaine 0.25% Inj(30mL) IJ ONE (11:30)
[2017-03-24] MEDS ORDERED: Dexamethasone 4 mg/1 ml IVP PRN (11:36)
--- NOTE | 2017-03-24 11:51 | PCM.SURG1 ---
Surgeon's Initial Post Op Note - Surgeon's Notes Surgeon: Jamil Bales MD Fitter / Welder: Sterling Nettles Type of Anesthesia: General Endo Anesthesia Administered By: Usman Pre-Operative Diagnosis: Vertebral body fracture Operative Findings: on flouro: same findings as x ray and CT -> mild compression deformity. Post-Operative Diagnosis: as above Operation Performed: open L1 vertebroplasty, non instrumented fusion with DBM Specimen/Specimens Removed: none Estimated Blood Loss: EBL {In ML}: 20 Blood Products Given: N/A Drains Used: No Drains Post-Op Condition: Good Date of Surgery/Procedure: 03/24/17 Time of Surgery/Procedure: 09:40
[2017-03-24] MEDS ORDERED: ceFAZolin IV 1 gm in Dextrose 1 GM/50 ML BAG IVPB SCH (12:15)
--- NOTE | 2017-03-24 12:31 | CP.PCM.PN ---
Subjective - Date & Time of Evaluation Date of Evaluation: 03/24/17 Time of Evaluation: 07:40 - Subjective Subjective: Patient seen and examined in MedSurg unit this morning. Patient remains stable. Cleared by Cardiology for OR today morning/Vertebroplasty Has been NPO since midnight for OR, on IV fluids Afebrile, VS stable wnl Objective - Vital Signs/Intake and Output Vital Signs (last 24 hours): Temp Pulse Resp BP Pulse Ox 97.6 F 89 18 115/82 99 03/24/17 12:00 03/24/17 12:15 03/24/17 12:15 03/24/17 12:15 03/24/17 12:15 Intake and Output: 03/24/17 03/24/17 06:59 18:59 Intake Total 600 Balance 600 - Medications Medications: Current Medications Acetaminophen (Tylenol 325mg Tab) 325 mg PO Q4 PRN PRN Reason: Pain, Mild (1-3) Alendronate Sodium (Fosamax) 70 mg PO QWK [facility] Amitriptyline HCl (Elavil) 10 mg PO HS [facility] Last Admin: 03/23/17 21:29 Dose: 10 mg Amlodipine Besylate (Norvasc) 5 mg PO DAILY [facility] Last Admin: 03/23/17 10:11 Dose: 5 mg Atorvastatin Calcium (Lipitor) 10 mg PO DAILY [facility] Last Admin: 03/23/17 10:11 Dose: 10 mg Dexamethasone (Decadron Inj) 4 mg IVP ONCE PRN PRN Reason: Nausea/Vomiting Stop: 03/24/17 13:37 Diphenhydramine HCl (Benadryl) 50 mg IVP Q12 PRN PRN Reason: Itching / Pruritus Last Admin: 03/21/17 07:11 Dose: 50 mg Docusate Sodium (Colace) 200 mg PO DAILY [facility] Ezetimibe (Zetia) 10 mg PO DAILY [facility] Last Admin: 03/23/17 10:10 Dose: 10 mg Famotidine (Pepcid) 20 mg PO DAILY [facility] Last Admin: 03/23/17 11:12 Dose: 20 mg Ciprofloxacin (Cipro 400mg/200ml Dsw) 400 mg in 200 mls @ 200 mls/hr IVPB Q12 [facility] PRN Reason: Protocol Last Admin: 03/23/17 21:28 Dose: 200 mls/hr Lactated Ringer's (Lactated Ringer's) 1,000 mls @ 125 mls/hr IV .Q8H [facility] Cefazolin Sodium/Dextrose (Ancef Iv 1 Gm Duplex) 1 gm in 50 mls @ 50 mls/hr IVPB Q8 [facility] PRN Reason: Protocol Stop: 03/25/17 01:59 Losartan Potassium (Cozaar) 100 mg PO DAILY [facility] Last Admin: 03/23/17 10:09 Dose: 100 mg Metoclopramide HCl (Reglan) 10 mg IVP ONCE PRN PRN Reason: Nausea/Vomiting Stop: 03/24/17 13:37 Morphine Sulfate (Morphine) 4 mg IVP Q4 PRN PRN Reason: Pain, severe (8-10) Last Admin: 03/23/17 17:14 Dose: 4 mg Morphine Sulfate (Morphine) 2 mg IVP Q10M PRN PRN Reason: Pain, severe (8-10) Stop: 03/24/17 13:36 Ondansetron HCl (Zofran Inj) 4 mg IVP Q6 PRN PRN Reason: Nausea/Vomiting Oxybutynin Chloride (Ditropan Tab) 5 mg PO BID [facility] Last Admin: 03/23/17 17:15 Dose: 5 mg Oxycodone HCl (Oxycontin Extended Release Tab) 10 mg PO Q12 [facility] Stop: 03/24/17 21:01 Last Admin: 03/23/17 21:28 Dose: 10 mg Trazodone HCl (Desyrel) 50 mg PO HS [facility] Last Admin: 03/23/17 21:29 Dose: 50 mg - Labs Labs: 03/23/17 05:40 03/23/17 05:40 PT 12.0 Seconds (9.8-13.1) 03/20/17 21:46 INR 1.1 (0.9-1.2) 03/20/17 21:46 APTT 33.0 Seconds (25.6-37.1) 03/20/17 21:46 - Constitutional Appears: Non-toxic, No Acute Distress - ENT Exam ENT Exam: Mucous Membranes Moist - Respiratory Exam Respiratory Exam: Clear to Ausculation Bilateral, NORMAL BREATHING PATTERN - Cardiovascular Exam Cardiovascular Exam: REGULAR RHYTHM, +S1, +S2 - GI/Abdominal Exam GI & Abdominal Exam: Soft, Normal Bowel Sounds. absent: Guarding, Rigid, Tenderness - Extremities Exam Extremities Exam: Normal Inspection. absent: Calf Tenderness, Pedal Edema - Neurological Exam Neurological Exam: Alert, Awake, Oriented x3 - Skin Skin Exam: Dry, Intact, Normal Color Assessment and Plan (1) Fracture lumbar vertebra-closed Assessment & Plan: Traumatic, s/p Fall For OR today morning Cleared by Cardiology CXR showed no active disease Echo showed EF 70 % Status: Acute (2) Urinary tract infection Assessment & Plan: noted on admission asymptomatic urine culture showed E choli c/w cipro Status: Acute (3) Leukemia Status: Chronic (4) Hypertension Status: Chronic (5) DVT prophylaxis Assessment & Plan: SCDs for now OR this morning consider Heparin or Lovenox for prophylaxis after surgery Status: Acute
--- NOTE | 2017-03-24 14:25 | RAD ---
PROCEDURE: Intraoperative Fluoroscopy. HISTORY: L1 VERTEBROPLASTY FINDINGS: Fluoroscopic assistance was provided for left 1 vertebroplasty. Total fluoroscopic time (continuous mode) utilized during the procedure: 115.3 seconds. Total exam DLP: (mGy): 32.74
[2017-03-24] MEDS: Lactated Ringer's 1,000 ML IV SCH ×2 (16:46)
[2017-03-24] MEDS: Ciprofloxacin 400mg/200ml D5W 400 MG/200 ML BAG IVPB SCH ×2 (16:54→21:17)
[2017-03-24] MEDS: ceFAZolin IV 1 gm in Dextrose 1 GM/50 ML BAG IVPB SCH (19:07)
--- NOTE | 2017-03-24 22:25 | CP.PCM.PN ---
Subjective - Date & Time of Evaluation Date of Evaluation: 03/24/17 Time of Evaluation: 19:00 - Subjective Subjective: Tolerated procedure well Objective - Vital Signs/Intake and Output Vital Signs (last 24 hours): Temp Pulse Resp BP Pulse Ox 99.6 F 105 H 20 108/67 93 L 03/24/17 20:30 03/24/17 20:30 03/24/17 20:30 03/24/17 20:30 03/24/17 20:30 Intake and Output: 03/24/17 03/25/17 18:59 06:59 Intake Total 800 Output Total 150 Balance 650 - Medications Medications: Current Medications Acetaminophen (Tylenol 325mg Tab) 325 mg PO Q4 PRN PRN Reason: Pain, Mild (1-3) Alendronate Sodium (Fosamax) 70 mg PO QWK [facility] Amitriptyline HCl (Elavil) 10 mg PO HS [facility] Last Admin: 03/24/17 21:20 Dose: 10 mg Amlodipine Besylate (Norvasc) 5 mg PO DAILY [facility] Last Admin: 03/24/17 09:32 Dose: Not Given Atorvastatin Calcium (Lipitor) 10 mg PO DAILY [facility] Last Admin: 03/24/17 16:31 Dose: 10 mg Diphenhydramine HCl (Benadryl) 50 mg IVP Q12 PRN PRN Reason: Itching / Pruritus Last Admin: 03/21/17 07:11 Dose: 50 mg Docusate Sodium (Colace) 200 mg PO DAILY [facility] Last Admin: 03/24/17 16:32 Dose: 200 mg Ezetimibe (Zetia) 10 mg PO DAILY [facility] Last Admin: 03/24/17 16:27 Dose: 10 mg Famotidine (Pepcid) 20 mg PO DAILY [facility] Last Admin: 03/24/17 16:31 Dose: 20 mg Ciprofloxacin (Cipro 400mg/200ml Dsw) 400 mg in 200 mls @ 200 mls/hr IVPB Q12 [facility] PRN Reason: Protocol Last Admin: 03/24/17 21:17 Dose: 200 mls/hr Lactated Ringer's (Lactated Ringer's) 1,000 mls @ 125 mls/hr IV .Q8H [facility] Last Admin: 03/24/17 16:46 Dose: 125 mls/hr Cefazolin Sodium/Dextrose (Ancef Iv 1 Gm Duplex) 1 gm in 50 mls @ 50 mls/hr IVPB Q8@0200,1000,1800 [facility] PRN Reason: Protocol Stop: 03/25/17 10:59 Last Admin: 03/24/17 19:07 Dose: 50 mls/hr Losartan Potassium (Cozaar) 100 mg PO DAILY [facility] Last Admin: 03/24/17 09:33 Dose: Not Given Morphine Sulfate (Morphine) 4 mg IVP Q4 PRN PRN Reason: Pain, severe (8-10) Last Admin: 03/24/17 16:11 Dose: 4 mg Ondansetron HCl (Zofran Inj) 4 mg IVP Q6 PRN PRN Reason: Nausea/Vomiting Oxybutynin Chloride (Ditropan Tab) 5 mg PO BID [facility] Last Admin: 03/24/17 16:26 Dose: 5 mg Trazodone HCl (Desyrel) 50 mg PO HS [facility] Last Admin: 03/24/17 21:20 Dose: 50 mg - Labs Labs: 03/23/17 05:40 03/23/17 05:40 PT 12.0 Seconds (9.8-13.1) 03/20/17 21:46 INR 1.1 (0.9-1.2) 03/20/17 21:46 APTT 33.0 Seconds (25.6-37.1) 03/20/17 21:46 - Head Exam Head Exam: ATRAUMATIC - Eye Exam Eye Exam: Normal appearance - ENT Exam ENT Exam: Mucous Membranes Dry - Respiratory Exam Respiratory Exam: NORMAL BREATHING PATTERN - Cardiovascular Exam Cardiovascular Exam: +S1, +S2 - GI/Abdominal Exam GI & Abdominal Exam: Normal Bowel Sounds Assessment and Plan (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 to monitor Status: Acute
[2017-03-25] MEDS: ceFAZolin IV 1 gm in Dextrose 1 GM/50 ML BAG IVPB SCH ×2 (02:25→10:31)
[2017-03-25] MEDS: Lactated Ringer's 1,000 ML IV SCH ×4 (04:32→23:00)
[2017-03-25 06:28] LABS: HEMATOCRIT 39.4 % (34.0-47.0); MEAN CORPUSCULAR HEMOGLOBIN 28.8 pg (27.0-31.0); MEAN CORPUSCULAR HGB CONC 31.6 g/dL (33.0-37.0); RED CELL DISTRIBUTION WIDTH 15.1 % (11.5-14.5)
[2017-03-25 06:44] LABS: BLOOD UREA NITROGEN 18 mg/dl (7-17); CALCIUM 8.8 mg/dL (8.4-10.2); CARBON DIOXIDE 23 mmol/L (22-30); CHLORIDE 105 mmol/L (98-107); GFR AFRICAN-AMERICAN > 60; GLUCOSE,RANDOM 133 mg/dL (65-105); POTASSIUM 4.5 MMOL/L (3.6-5.0); SODIUM 137 mmol/l (132-148); WHITE BLOOD COUNT 49.1 K/uL (4.8-10.8)
[2017-03-25] MEDS: Ciprofloxacin 400mg/200ml D5W 400 MG/200 ML BAG IVPB SCH ×2 (10:32→21:41)
--- NOTE | 2017-03-25 12:06 | OP ---
PROCEDURE DATE: 03/24/2017 PREOPERATIVE DIAGNOSIS: Burst fracture of L1. POSTOPERATIVE DIAGNOSIS: Burst fracture of L1. PROCEDURES: L1 vertebroplasty, L1-L2 posterolateral fusion. SURGEON: Jamil Bales MD HARDWARE MANAGER: ANGELICA Frias, physician infertility medical assistant stayed throughout the case from the beginning to the end and helped me perform the surgery. Fluoroscopy has been used. DESCRIPTION OF PROCEDURE: The patient was brought to the operating room, anesthetized with general endotracheal anesthesia, placed in a prone position on a Jorge table. Care was taken to protect all the pressure points. Back of the thoracolumbar area thoroughly prepped and draped in the same sterile manner, after marking the skin incision for a vertebroplasty. Skin has been incised, bleeding skins have been controlled with bipolar shell maker lockstitch. After using a Bovie shell maker lockstitch, paraspinal muscles have been detached from attachments of spinous process and lamina of L1-L2. At this point, identification of the levels had been done with the help of fluoroscopy and with the help of the fluoroscopy, further vertebroplasty done with the help of Light Chaser Animation system. Initially, by using a traditional landmark, point of entry has been noted for the pedicles at L1 bilaterally. Initially, a K-wire, later by using a Jamshidi needle, the vertebral body has been entered and both sides of Jamshidi needle has been placed and confirmed with AP and lateral fluoroscopy. Later, methylmethacrylate has been injected both sides and position has been confirmed with fluoroscopy. The Jamshidi needles had been removed and bone had been applied to that area. At this point, lateral aspect of the joint, transverse process and L1-L2 had been decorticated. Demineralized bone placed in the area achieving a posterolateral fusion. After that, hemostasis was best achieved. Fascia across the interspinous ligament, spinous process with 1-Vicryl, subcutaneous tissue with 3 Vicryl and skin had been closed with intradermal 3-0 Vicryl stitches. The patient tolerated the procedure. After procedure, mobilized to recovery room in stable condition. Jamil Bales MD
--- NOTE | 2017-03-25 13:13 | CP.PCM.PN ---
Subjective - Date & Time of Evaluation Date of Evaluation: 03/25/17 Time of Evaluation: 08:20 - Subjective Subjective: Patient seen and examined with attending Dr Ford in MedSurg unit this morning. Patient alert, and awake. Reports pain is well control. Bladder scan at bedside done by nurse showed 500 ml, Higgins Cath placed Afebrile, had an uneventful night Objective - Vital Signs/Intake and Output Vital Signs (last 24 hours): Temp Pulse Resp BP Pulse Ox 98.2 F 90 20 167/71 H 90 L 03/25/17 08:17 03/25/17 10:36 03/25/17 08:17 03/25/17 10:36 03/25/17 08:17 - Medications Medications: Current Medications Acetaminophen (Tylenol 325mg Tab) 325 mg PO Q4 PRN PRN Reason: Pain, Mild (1-3) Alendronate Sodium (Fosamax) 70 mg PO QWK [facility] Amitriptyline HCl (Elavil) 10 mg PO HS [facility] Last Admin: 03/24/17 21:20 Dose: 10 mg Amlodipine Besylate (Norvasc) 5 mg PO DAILY [facility] Last Admin: 03/24/17 09:32 Dose: Not Given Atorvastatin Calcium (Lipitor) 10 mg PO DAILY [facility] Last Admin: 03/25/17 10:38 Dose: 10 mg Diphenhydramine HCl (Benadryl) 50 mg IVP Q12 PRN PRN Reason: Itching / Pruritus Last Admin: 03/21/17 07:11 Dose: 50 mg Docusate Sodium (Colace) 200 mg PO DAILY [facility] Last Admin: 03/25/17 10:36 Dose: 200 mg Ezetimibe (Zetia) 10 mg PO DAILY [facility] Last Admin: 03/24/17 16:27 Dose: 10 mg Famotidine (Pepcid) 20 mg PO DAILY [facility] Last Admin: 03/24/17 16:31 Dose: 20 mg Ciprofloxacin (Cipro 400mg/200ml Dsw) 400 mg in 200 mls @ 200 mls/hr IVPB Q12 [facility] PRN Reason: Protocol Last Admin: 03/25/17 10:32 Dose: 200 mls/hr Lactated Ringer's (Lactated Ringer's) 1,000 mls @ 125 mls/hr IV .Q8H [facility] Last Admin: 03/25/17 06:26 Dose: 125 mls/hr Lactobacillus Acidophilus (Bacid Acidophilus) 1 cap PO BID [facility] Losartan Potassium (Cozaar) 100 mg PO DAILY [facility] Last Admin: 03/25/17 10:36 Dose: 100 mg Morphine Sulfate (Morphine) 4 mg IVP Q4 PRN PRN Reason: Pain, severe (8-10) Last Admin: 03/25/17 06:27 Dose: 4 mg Ondansetron HCl (Zofran Inj) 4 mg IVP Q6 PRN PRN Reason: Nausea/Vomiting Oxybutynin Chloride (Ditropan Tab) 5 mg PO BID [facility] Last Admin: 03/25/17 10:38 Dose: 5 mg Trazodone HCl (Desyrel) 50 mg PO HS [facility] Last Admin: 03/24/17 21:20 Dose: 50 mg - Labs Labs: 03/25/17 05:30 03/25/17 05:30 PT 12.0 Seconds (9.8-13.1) 03/20/17 21:46 INR 1.1 (0.9-1.2) 03/20/17 21:46 APTT 33.0 Seconds (25.6-37.1) 03/20/17 21:46 - Additional Findings Additional findings: Constitutional Appears: Non-toxic, No Acute Distress - ENT Exam ENT Exam: Mucous Membranes Moist - Respiratory Exam Respiratory Exam: Clear to Ausculation Bilateral, NORMAL BREATHING PATTERN - Cardiovascular Exam Cardiovascular Exam: REGULAR RHYTHM, +S1, +S2 - GI/Abdominal Exam GI & Abdominal Exam: Soft, Normal Bowel Sounds. absent: Guarding, Rigid, Tenderness - Extremities Exam Extremities Exam: Normal Inspection. absent: Calf Tenderness, Pedal Edema - Neurological Exam Neurological Exam: Alert, Awake, Oriented x3 - Skin Skin Exam: Dry, Intact, Normal Color Assessment and Plan (1) Status post vertebroplasty Assessment & Plan: s/p L1 vertebroplasty on POD #1 c/w pain control incentive spirometer PT evaluation Status: Acute (2) Fracture lumbar vertebra-closed Assessment & Plan: s/p L1 vertebroplasty on POD #1 Status: Acute (3) Postoperative urinary retention Assessment & Plan: Higgins Cath placed f/u I & O Status: Acute (4) Urinary tract infection Assessment & Plan: c/w Cipro Status: Acute (5) Leukemia Status: Chronic (6) Hypertension Status: Chronic (7) DVT prophylaxis Assessment & Plan: Start Lovenox 40 mg SC Status: Acute
[2017-03-25] MEDS ORDERED: Enoxaparin 40 mg Syringe SC SCH (13:30)
[2017-03-25] MEDS: Lactobacillus Acidophilus 500 MU Cap PO SCH (17:02)
--- NOTE | 2017-03-26 00:17 | CP.PCM.PN ---
Subjective - Date & Time of Evaluation Date of Evaluation: 03/25/17 Time of Evaluation: 16:00 - Subjective Subjective: Feeling better Objective - Vital Signs/Intake and Output Vital Signs (last 24 hours): Temp Pulse Resp BP Pulse Ox 98.4 F 99 H 19 144/68 94 L 03/25/17 21:00 03/25/17 21:00 03/25/17 21:00 03/25/17 21:00 03/25/17 21:00 Intake and Output: 03/25/17 03/26/17 18:59 06:59 Output Total 750 Balance -750 - Medications Medications: Current Medications Acetaminophen (Tylenol 325mg Tab) 325 mg PO Q4 PRN PRN Reason: Pain, Mild (1-3) Alendronate Sodium (Fosamax) 70 mg PO QWK [facility] Amitriptyline HCl (Elavil) 10 mg PO HS [facility] Last Admin: 03/25/17 21:41 Dose: 10 mg Amlodipine Besylate (Norvasc) 5 mg PO DAILY [facility] Last Admin: 03/25/17 10:00 Dose: 5 mg Atorvastatin Calcium (Lipitor) 10 mg PO DAILY [facility] Last Admin: 03/25/17 10:38 Dose: 10 mg Diphenhydramine HCl (Benadryl) 50 mg IVP Q12 PRN PRN Reason: Itching / Pruritus Last Admin: 03/21/17 07:11 Dose: 50 mg Docusate Sodium (Colace) 200 mg PO DAILY [facility] Last Admin: 03/25/17 10:36 Dose: 200 mg Ezetimibe (Zetia) 10 mg PO DAILY [facility] Last Admin: 03/25/17 10:00 Dose: 10 mg Enoxaparin Sodium (Lovenox) 40 mg SC DAILY [facility] PRN Reason: Protocol Famotidine (Pepcid) 20 mg PO DAILY [facility] Last Admin: 03/25/17 09:00 Dose: 20 mg Ciprofloxacin (Cipro 400mg/200ml Dsw) 400 mg in 200 mls @ 200 mls/hr IVPB Q12 [facility] PRN Reason: Protocol Last Admin: 03/25/17 21:41 Dose: 200 mls/hr Lactated Ringer's (Lactated Ringer's) 1,000 mls @ 125 mls/hr IV .Q8H [facility] Last Admin: 03/25/17 21:44 Dose: 125 mls/hr Lactobacillus Acidophilus (Bacid Acidophilus) 1 cap PO BID [facility] Last Admin: 03/25/17 17:02 Dose: 1 cap Losartan Potassium (Cozaar) 100 mg PO DAILY [facility] Last Admin: 03/25/17 10:36 Dose: 100 mg Morphine Sulfate (Morphine) 4 mg IVP Q4 PRN PRN Reason: Pain, severe (8-10) Last Admin: 03/25/17 14:52 Dose: 4 mg Ondansetron HCl (Zofran Inj) 4 mg IVP Q6 PRN PRN Reason: Nausea/Vomiting Oxybutynin Chloride (Ditropan Tab) 5 mg PO BID [facility] Last Admin: 03/25/17 17:03 Dose: 5 mg Trazodone HCl (Desyrel) 50 mg PO HS [facility] Last Admin: 03/25/17 21:41 Dose: 50 mg - Labs Labs: 03/25/17 05:30 03/25/17 05:30 PT 12.0 Seconds (9.8-13.1) 03/20/17 21:46 INR 1.1 (0.9-1.2) 03/20/17 21:46 APTT 33.0 Seconds (25.6-37.1) 03/20/17 21:46 - Head Exam Head Exam: ATRAUMATIC - Eye Exam Eye Exam: Normal appearance - ENT Exam ENT Exam: Mucous Membranes Dry - Respiratory Exam Respiratory Exam: NORMAL BREATHING PATTERN - Cardiovascular Exam Cardiovascular Exam: +S1, +S2 - GI/Abdominal Exam GI & Abdominal Exam: Normal Bowel Sounds Assessment and Plan (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
[2017-03-26 07:55] VITALS: PULSE 98; RESP 17; TEMP 97.4; O2SAT 94
[2017-03-26 08:48] LABS: BASO # 0.2 K/uL (0.0-0.2); BASO % 0.4 % (0.0-2.0); EOS # 0.2 K/uL (0.0-0.7); EOS % 0.5 % (0.0-4.0); HEMATOCRIT 37.4 % (34.0-47.0); LYMPH # 37.1 K/uL (1.0-4.3); MEAN CELL VOLUME 89.9 fl (81.0-99.0); MEAN CORPUSCULAR HGB CONC 32.2 g/dL (33.0-37.0); MEAN PLATELET VOLUME 9.6 fl (7.2-11.7); MONO # 1.3 K/uL (0.0-0.8); MONO % 2.8 % (0.0-10.0); NEUT # 6.5 K/uL (1.8-7.0); NEUT % 14.3 % (50.0-75.0); NRBC % 0.2 % (0.0-0.0); PLATELET COUNT 130 K/uL (130-400)
[2017-03-26 08:57] LABS: WHITE BLOOD COUNT 45.3 K/uL (4.8-10.8)
[2017-03-26] MEDS: Lactobacillus Acidophilus 500 MU Cap PO SCH (09:01)
[2017-03-26] MEDS: Ciprofloxacin 400mg/200ml D5W 400 MG/200 ML BAG IVPB SCH (09:02)
[2017-03-26 09:08] VITALS: BP 141/80
--- NOTE | 2017-03-26 10:04 | CP.PCM.PN ---
Subjective - Date & Time of Evaluation Date of Evaluation: 03/26/17 Time of Evaluation: 08:15 - Subjective Subjective: Patient seen and examined in MedSurg unit this morning. Alert, and awake. Pain is well control, but states that does not want to take percocet for pain. As per nurse patient pulled Higgins Cath out over night, but she void 200 ml of urine this morning. Afebrile, but mild tachy, BP controlled. After PT eval, Acute rehab was recommended Objective - Vital Signs/Intake and Output Vital Signs (last 24 hours): Temp Pulse Resp BP Pulse Ox 97.4 F L 98 H 17 141/80 94 L 03/26/17 07:55 03/26/17 09:06 03/26/17 07:55 03/26/17 09:06 03/26/17 07:55 - Medications Medications: Current Medications Acetaminophen (Tylenol 325mg Tab) 325 mg PO Q4 PRN PRN Reason: Pain, Mild (1-3) Alendronate Sodium (Fosamax) 70 mg PO QWK [facility] Amitriptyline HCl (Elavil) 10 mg PO HS [facility] Last Admin: 03/25/17 21:41 Dose: 10 mg Amlodipine Besylate (Norvasc) 5 mg PO DAILY [facility] Last Admin: 03/26/17 09:06 Dose: 5 mg Atorvastatin Calcium (Lipitor) 10 mg PO DAILY [facility] Last Admin: 03/26/17 09:06 Dose: 10 mg Ciprofloxacin (Cipro) 500 mg PO Q12 [facility] PRN Reason: Protocol Diphenhydramine HCl (Benadryl) 50 mg IVP Q12 PRN PRN Reason: Itching / Pruritus Last Admin: 03/21/17 07:11 Dose: 50 mg Docusate Sodium (Colace) 200 mg PO DAILY [facility] Last Admin: 03/26/17 09:03 Dose: 200 mg Ezetimibe (Zetia) 10 mg PO DAILY [facility] Last Admin: 03/26/17 09:08 Dose: 10 mg Enoxaparin Sodium (Lovenox) 40 mg SC DAILY [facility] PRN Reason: Protocol Last Admin: 03/26/17 09:06 Dose: 40 mg Famotidine (Pepcid) 20 mg PO DAILY [facility] Last Admin: 03/26/17 09:08 Dose: 20 mg Lactated Ringer's (Lactated Ringer's) 1,000 mls @ 125 mls/hr IV .Q8H [facility] Last Admin: 03/25/17 23:00 Dose: Not Given Lactobacillus Acidophilus (Bacid Acidophilus) 1 cap PO BID [facility] Last Admin: 03/26/17 09:01 Dose: 1 cap Losartan Potassium (Cozaar) 100 mg PO DAILY [facility] Last Admin: 03/26/17 09:05 Dose: 100 mg Morphine Sulfate (Morphine) 4 mg IVP Q4 PRN PRN Reason: Pain, severe (8-10) Last Admin: 03/26/17 01:10 Dose: 4 mg Ondansetron HCl (Zofran Inj) 4 mg IVP Q6 PRN PRN Reason: Nausea/Vomiting Oxybutynin Chloride (Ditropan Tab) 5 mg PO BID [facility] Last Admin: 03/26/17 09:05 Dose: 5 mg Tramadol HCl (Ultram) 50 mg PO Q6 PRN PRN Reason: Pain, moderate (4-7) Last Admin: 03/26/17 09:45 Dose: 50 mg Trazodone HCl (Desyrel) 50 mg PO HS [facility] Last Admin: 03/25/17 21:41 Dose: 50 mg - Labs Labs: 03/26/17 08:30 03/25/17 05:30 PT 12.0 Seconds (9.8-13.1) 03/20/17 21:46 INR 1.1 (0.9-1.2) 03/20/17 21:46 APTT 33.0 Seconds (25.6-37.1) 03/20/17 21:46 - Constitutional Appears: Non-toxic, No Acute Distress - ENT Exam ENT Exam: Mucous Membranes Moist - Respiratory Exam Respiratory Exam: Clear to Ausculation Bilateral, NORMAL BREATHING PATTERN - Cardiovascular Exam Cardiovascular Exam: REGULAR RHYTHM, +S1, +S2 - GI/Abdominal Exam GI & Abdominal Exam: Soft, Normal Bowel Sounds. absent: Distended, Guarding, Rigid, Tenderness - Neurological Exam Neurological Exam: Alert, Awake, Oriented x3 Assessment and Plan (1) Status post vertebroplasty Assessment & Plan: s/p L1 vertebroplasty on POD #2 c/w pain control incentive spirometer H/H stable WNL After PT eval, Acute rehab was recommended Status: Acute (2) Fracture lumbar vertebra-closed Status: Acute (3) Postoperative urinary retention Status: Acute (4) Urinary tract infection Assessment & Plan: on cipro Status: Acute (5) Leukemia Assessment & Plan: secondary to CLL Dr. Lopez on board, appreciated recommendations Status: Chronic (6) Hypertension Status: Chronic (7) DVT prophylaxis Assessment & Plan: lovenox Status: Acute
[2017-03-26 10:58] LABS: EOSINOPHIL 2 % (0-7); NEUTROPHIL 16 % (42-75); REACTIVE LYMPHOCYTES 4 % (0-0); SMUDGE CELLS PRESENT; TOTAL CELLS COUNTED 100
--- NOTE | 2017-03-26 12:50 | CP.PCM.PN ---
Subjective - Date & Time of Evaluation Date of Evaluation: 03/26/17 Time of Evaluation: 12:00 - Subjective Subjective: Has some back pain. Objective - Vital Signs/Intake and Output Vital Signs (last 24 hours): Temp Pulse Resp BP Pulse Ox 97.4 F L 98 H 17 141/80 94 L 03/26/17 07:55 03/26/17 09:06 03/26/17 07:55 03/26/17 09:06 03/26/17 07:55 - Medications Medications: Current Medications Acetaminophen (Tylenol 325mg Tab) 325 mg PO Q4 PRN PRN Reason: Pain, Mild (1-3) Alendronate Sodium (Fosamax) 70 mg PO QWK [facility] Amitriptyline HCl (Elavil) 10 mg PO HS [facility] Last Admin: 03/25/17 21:41 Dose: 10 mg Amlodipine Besylate (Norvasc) 5 mg PO DAILY [facility] Last Admin: 03/26/17 09:06 Dose: 5 mg Atorvastatin Calcium (Lipitor) 10 mg PO DAILY [facility] Last Admin: 03/26/17 09:06 Dose: 10 mg Ciprofloxacin (Cipro) 500 mg PO Q12 CLAUDIO PRN Reason: Protocol Diphenhydramine HCl (Benadryl) 50 mg IVP Q12 PRN PRN Reason: Itching / Pruritus Last Admin: 03/21/17 07:11 Dose: 50 mg Docusate Sodium (Colace) 200 mg PO DAILY [facility] Last Admin: 03/26/17 09:03 Dose: 200 mg Ezetimibe (Zetia) 10 mg PO DAILY [facility] Last Admin: 03/26/17 09:08 Dose: 10 mg Enoxaparin Sodium (Lovenox) 40 mg SC DAILY [facility] PRN Reason: Protocol Last Admin: 03/26/17 09:06 Dose: 40 mg Famotidine (Pepcid) 20 mg PO DAILY [facility] Last Admin: 03/26/17 09:08 Dose: 20 mg Lactated Ringer's (Lactated Ringer's) 1,000 mls @ 125 mls/hr IV .Q8H [facility] Last Admin: 03/25/17 23:00 Dose: Not Given Lactobacillus Acidophilus (Bacid Acidophilus) 1 cap PO BID [facility] Last Admin: 03/26/17 09:01 Dose: 1 cap Losartan Potassium (Cozaar) 100 mg PO DAILY [facility] Last Admin: 03/26/17 09:05 Dose: 100 mg Morphine Sulfate (Morphine) 4 mg IVP Q4 PRN PRN Reason: Pain, severe (8-10) Last Admin: 03/26/17 01:10 Dose: 4 mg Ondansetron HCl (Zofran Inj) 4 mg IVP Q6 PRN PRN Reason: Nausea/Vomiting Oxybutynin Chloride (Ditropan Tab) 5 mg PO BID [facility] Last Admin: 03/26/17 09:05 Dose: 5 mg Tramadol HCl (Ultram) 50 mg PO Q6 PRN PRN Reason: Pain, moderate (4-7) Last Admin: 03/26/17 09:45 Dose: 50 mg Trazodone HCl (Desyrel) 50 mg PO [facility] Last Admin: 03/25/17 21:41 Dose: 50 mg - Labs Labs: 03/26/17 08:30 03/25/17 05:30 PT 12.0 Seconds (9.8-13.1) 03/20/17 21:46 INR 1.1 (0.9-1.2) 03/20/17 21:46 APTT 33.0 Seconds (25.6-37.1) 03/20/17 21:46 - Head Exam Head Exam: ATRAUMATIC - Eye Exam Eye Exam: Normal appearance - ENT Exam ENT Exam: Mucous Membranes Dry - Respiratory Exam Respiratory Exam: NORMAL BREATHING PATTERN - Cardiovascular Exam Cardiovascular Exam: +S1, +S2 - GI/Abdominal Exam GI & Abdominal Exam: Normal Bowel Sounds - Extremities Exam Extremities Exam: Normal Inspection Assessment and Plan (1) 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
== END 2017-03-26 15:11 | DRG 460 ==
LOC: H.ER 18:52 → H.ERHOLD 22:04 → H.MEDSURG1 23:40
PROVIDERS: ADMIT Family Medicine; ATTEND Family Medicine
PROC: 0SG00K1 Fusion of Lumbar Vertebral Joint with Nonautologous Tissue Substitute, Posterior Approach, Posterior Column, Open Approach (ICD-10-PCS; 2017-03-24)
PROC: 0QU03JZ Supplement Lumbar Vertebra with Synthetic Substitute, Percutaneous Approach (ICD-10-PCS; 2017-03-24)
PROC: 0QS03ZZ Reposition Lumbar Vertebra, Percutaneous Approach (ICD-10-PCS; principal; 2017-03-24 10:45)
DX: S32.011A Stable burst fracture of first lumbar vertebra, initial encounter for closed fracture (principal); C91.10 Chronic lymphocytic leukemia of B-cell type not having achieved remission; D69.6 Thrombocytopenia, unspecified; N39.0 Urinary tract infection, site not specified; Z88.6 Allergy status to analgesic agent; Z88.2 Allergy status to sulfonamides; I10 Essential (primary) hypertension; E78.00 Pure hypercholesterolemia, unspecified; M81.0 Age-related osteoporosis without current pathological fracture; M19.90 Unspecified osteoarthritis, unspecified site; Z87.891 Personal history of nicotine dependence; W01.0XXA Fall on same level from slipping, tripping and stumbling without subsequent striking against object, initial encounter; B96.20 Unspecified Escherichia coli [E. coli] as the cause of diseases classified elsewhere; R33.9 Retention of urine, unspecified; N99.89 Other postprocedural complications and disorders of genitourinary system; Y83.8 Other surgical procedures as the cause of abnormal reaction of the patient, or of later complication, without mention of misadventure at the time of the procedure